=== PATIENT | female | born 1970 | race Caucasian/White ===

== ENCOUNTER 2019-09-24 13:38 | Inpatient (IN) | payer MEDICAID ==
[~2019-09-24] VITALS: Ht 170.2 cm; Wt 98.4 kg
--- NOTE | 2019-09-24 13:52 | NUR ---
JELLY FROM [facility] WHERE SHE IS STAYING. TO ER BED 5. LETHARGIC, POST ICTAL. NOT IN RESP DISTRESS, BREATHING EVEN AND UNLABORED. BROUGHT IN FOR SEIZURE. PER EMS, REPORT PT HAD 8 EPISODES OF SEIZURE WITH THE LAST ONE BEING WITNESSED BY THE PARAMEDICS DESCRIBED TONIC CLONIC AND WAS GIVEN VERSED 5MG IM. PT IS RESPONSIVE TO VERBAL AND TACTILE STIMULI BUT SHE IS DROWSY. PER PT, SHE WAS NOT TAKING HER DILANTIN. PT IS PLACED ON SEIZURE PRECAUTION. WAS AT THE BEDSIDE FOR EVAL. ORDERS RECIEVED.
[2019-09-24] MEDS ORDERED: LEVETIRACETAM (500MG) 500 MG in IV NS 0.9% 100 ML IV ONE (14:00)
[2019-09-24] MEDS ORDERED: IV NS 0.9% 1,000 ML BAG IV ONE (14:00)
[2019-09-24] MEDS ORDERED: AMLO5TAB4 PO (14:17)
[2019-09-24] MEDS ORDERED: GABA-536 PO (14:17)
[2019-09-24] MEDS ORDERED: PHEN100C4 PO (14:17)
[2019-09-24 14:20] LABS: BASOPHILS # (AUTO) 0.1 /CMM (0.0-0.2); BASOPHILS % (AUTO) 1.1 % (0.0-2.0); EOSINOPHILS % (AUTO) 1.2 % (0.0-6.0); HEMATOCRIT 35 % (33-45); HEMOGLOBIN 10.7 g/dL (11.5-14.8); LYMPHOCYTES # (AUTO) 1.3 /CMM (0.8-4.8); LYMPHOCYTES % (AUTO) 26.4 % (20.0-44.0); MEAN CORPUSCULAR HGB CONC 31 g/dl (31.0-36.0); MEAN CORPUSCULAR VOLUME 74 fL (82-100); MONOCYTES # (AUTO) 0.4 /CMM (0.1-1.30); MONOCYTES % (AUTO) 7.9 % (2.0-12.0); NEUTROPHILS # (AUTO) 3.1 /CMM (1.8-8.9); NEUTROPHILS % (AUTO) 63.4 % (43.0-81.0); PLATELET COUNT (AUTO) 204 /CMM (150-450); WHITE BLOOD COUNT (AUTO) 4.9 K/uL (4.3-11.0)
[2019-09-24 14:27] LABS: CALCIUM, SERUM 9.1 mg/dL (8.5-10.1); CARBON DIOXIDE 24 mmol/L (21-32); CHLORIDE 108 mmol/L (98-107); CREATININE 1.1 mg/dL (0.6-1.3); GLUCOSE 101 mg/dL (74-106); POTASSIUM 3.4 mmol/L (3.5-5.1); SODIUM SERUM 143 mmol/L (136-145); UREA NITROGEN, BLOOD 17 mg/dL (7-18)
[2019-09-24 14:32] LABS: ALANINE AMINOTRANSFERASE 20 U/L (12-78); ALBUMIN 2.8 g/dL (3.4-5.0); ALKALINE PHOSPHATASE 131 U/L (46-116); ASPARTATE AMINOTRANSFERASE 17 U/L (15-37); BILIRUBIN,DIRECT 0.1 mg/dL (0.0-0.2); BILIRUBIN,TOTAL 0.2 mg/dL (0.2-1.0); TOTAL PROTEIN, SERUM 7.1 g/dL (6.4-8.2)
[2019-09-24 14:33] LABS: ALCOHOL, BLOOD < 3 mg/dL (0-0)
[2019-09-24 14:40] LABS: VALPROIC ACID < 3 ug/mL (50-100)
[2019-09-24] MEDS ORDERED: NS 0.9% IV ONE (15:30)
[2019-09-24] MEDS ORDERED: PHENYTOIN SODIUM IV ONE (15:30)
--- NOTE | 2019-09-24 15:48 | NUR ---
was at the bedside talking to pt. pt denies being . ok for pt to go to CT
--- NOTE | 2019-09-24 15:49 | NUR ---
COVID SWAB DONE AND SENT TO LAB
--- NOTE | 2019-09-24 15:51 | NUR ---
ANTONINO DEVINE CALLED FOR PT D/T BEING VERBALLY ABBUSSIVE TO STAFF. PT WAS RECEIVING DILATIN IV AND AND COMPLAINED THAT IT COULTER. PT THEN STATES THAT "SHE IS BEING PLAYED" AND STARTED TO GET VERBALLY ABUSIVE AND THROWING A TANTRUM.
[2019-09-24] MEDS ORDERED: phenytoin SODIUM IV 1,000 MG in IV NS 0.9% 100 ML IV ONE (16:00)
--- NOTE | 2019-09-24 16:14 | NUR ---
CALLED [facility] PAGED DOROTA SUN
[2019-09-24 16:51] VITALS: BP 152/97
--- NOTE | 2019-09-24 17:08 | NUR ---
report given to nitish rey for domenic
[2019-09-24] MEDS ORDERED: ACETAMINOPHEN 325 MG TABLET PO PRN (17:30)
[2019-09-24] MEDS ORDERED: MAG HYDROX/AL HYDROX/SIMETH 30 ML UDC PO PRN (17:30)
[2019-09-24] MEDS ORDERED: ONDANSETRON HCL/PF 4 MG/2 ML VIAL IVP PRN (17:30)
[2019-09-24] MEDS ORDERED: MAGNESIUM HYDROXIDE 30 ML UDC PO PRN (17:30)
[2019-09-24] MEDS ORDERED: Z GUARD REMEDY 2 OZ OINT TP PRN (17:30)
[2019-09-24 18:08] LABS: IRON, SERUM 31 ug/dl (50-175); TOTAL IRON BINDING CAPACITY 384 ug/dl (250-450)
--- NOTE | 2019-09-24 18:20 | NUR ---
PATIENT DOES NOT WANT TO EAT HER DINNER AND WANTED TO TALK TO ,EXPLAINED THAT WE CAN DO FACE TIME WITH THE SINCE THIS COVID UNIT AND VISITORA NOT ALLOWED.
[2019-09-24 18:22] LABS: FERRITIN 9 ng/mL (8-388)
--- NOTE | 2019-09-24 18:22 | NUR ---
TRIED TO GET PHONE NUMBER OF FROM PATIENT BUT BECOME VERBALLY AGGRESSIVE AND START TO PACE IN THE ROOM.
--- NOTE | 2019-09-24 18:24 | NUR ---
PATIENT DEMANDING TO CALL HER ,WALK OUT OF THE ROOM CURSING THE NURSES,INSTRUCTED NEED TO REMOVE IV,PATIENT RUN OFF TO THE LOBBY,ANTONINO HECK INITIATED IN THE LOBBY.
--- NOTE | 2019-09-24 18:25 | NUR ---
NURSING CRIMINAL DEFENSE ATTORNEY MADE AWARE.
--- NOTE | 2019-09-24 18:39 | NUR ---
WHILE REMOVING IV PATIENT HAD SEIZURE IN LOBBY BROUGHT BACK TO THE ROOM. DR. RAYA NOTIFIED AND ORDER TO GIVE ATIVAN,PATIENT REFUSED AND SCREAMING AND RUN OFF THE FLOOR AGAIN,ANTONINO HECK INITIATED AGAIN,NURSING SUP MADE AWARE.
--- NOTE | 2019-09-24 18:39 | NUR ---
PATIENT REFUSED IV TO BE FLUSHED AND REFUSED TO HAVE ANY MEDICINE GIVEN ON HER IV.PAGERula RAYA AGAIN.
--- NOTE | 2019-09-24 18:49 | NUR ---
ADDENDUM PATIENT PULLED OUT HER OWN IV.
--- NOTE | 2019-09-24 18:49 | NUR ---
PATIENT RUN OFF WITH THE ,GERALDINE RAYA NOTIFIED NURSING SUP MADE AWARE.ABLE TO REMOVE IV.
[2019-09-24] MEDS ORDERED: phenytoin SODIUM IV 500 MG in IV NS 0.9% 50 ML IV ONE (19:00)
--- NOTE | 2019-09-24 19:11 | NUR ---
MESSAGE LEFT TO INFECTION CONTROL PATIENT IS PUI FOR COVID.
[2019-09-24] MEDS ORDERED: phenytoin SODIUM IV 200 MG in IV NS 0.9% 50 ML IV SCH (21:00)
[2019-09-24] MEDS ORDERED: phenytoin SODIUM IV 300 MG in IV NS 0.9% 50 ML IV SCH (22:00)
[2019-09-25] MEDS ORDERED: phenytoin SODIUM IV 300 MG in IV NS 0.9% 50 ML IV SCH ×2 (03:00→08:00)
[2019-09-25] MEDS ORDERED: phenytoin SODIUM IV 500 MG in IV NS 0.9% 50 ML IV SCH (09:00)
[2019-09-25] MEDS ORDERED: AMLODIPINE BESYLATE 5 MG TABLET PO SCH (09:00)
== END 2019-09-24 19:36 | disposition left against medical advice (07) | DRG 53 ==
LOC: ER 13:42 → TELE1 17:36
PROVIDERS: ADMIT Nurse Practitioner Acute Care; ATTEND Nurse Practitioner Acute Care
DX: G40.909 Epilepsy, unspecified, not intractable, without status epilepticus (principal); D50.9 Iron deficiency anemia, unspecified; E87.6 Hypokalemia; E66.9 Obesity, unspecified; F17.210 Nicotine dependence, cigarettes, uncomplicated; F12.90 Cannabis use, unspecified, uncomplicated; Z59.0 Homelessness; Z83.3 Family history of diabetes mellitus
CPT/HCPCS: 36415; 70450-TC; 71045-TC; 80048-TC; 80076-TC; 80164-TC; 80185-TC; 82728-TC; 82962-TC; 83540-TC; 83605-TC; 85025-TC; 85730-TC; 87040-TC; 87081-TC; G0378; J1165; J1953; J7030; U0003-CS